=== PATIENT | female | born 1990 | race Caucasian/White ===

== ENCOUNTER 2016-10-21 18:01 | Emergency (ER) | payer MEDICAID ==
[~2016-10-21] VITALS: Ht 172.7 cm; Wt 121.9 kg
[~2016-10-21 18:01] MED LIST: CALC200T3 PO; OXYC-302 PO; PREN1TAB52 PO
[2016-10-21 18:14] VITALS: BP 135/83
[2016-10-21 19:15] LABS: HEMOGLOBIN 13.5 g/dL (11.7-16.4)
[2016-10-21 19:24] LABS: BLOOD UREA NITROGEN 13 mg/dL (7-18)
[2016-10-21] MEDS ORDERED: AZITHROMYCIN 500 MG TABLET PO ONE (20:00)
[2016-10-21] MEDS ORDERED: CEFTRIAXONE 250 MG IM ONE (20:00)
[2016-10-21] MEDS ORDERED: CEFTRIAXONE 250 MG ONE (20:12)
[2016-10-21] MEDS ORDERED: LIDOCAINE 1%, 20ML ONE (20:14)
[2016-10-21] MEDS ORDERED: AZITHROMYCIN 500 MG TABLET ONE (20:14)
== END 2016-10-21 21:38 | disposition home or self-care (01) ==
LOC: ED 21:18
DX: R10.84 Generalized abdominal pain (principal); A64 Unspecified sexually transmitted disease; N76.0 Acute vaginitis; E66.9 Obesity, unspecified
CPT/HCPCS: 36415; 80048; 81001; 82040; 85025; 87086; 87210; 87491; 87591; 87808; 96372; 99284; J0696

== ENCOUNTER 2020-11-16 13:11 | Emergency (ER) | payer MEDICAID, OTHER ==
[~2020-11-16] VITALS: Ht 172.7 cm; Wt 144.0 kg
[~2020-11-16 13:11] MED LIST changes: -OXYC-302 PO; +OXYC1TAB14 PO
[2020-11-16 13:48] VITALS: BP 133/80
== END 2020-11-16 15:04 | disposition home or self-care (01) ==
LOC: ED 14:58
DX: S83.91XA Sprain of unspecified site of right knee, initial encounter (principal); Z90.49 Acquired absence of other specified parts of digestive tract; Z87.891 Personal history of nicotine dependence; X58.XXXA Exposure to other specified factors, initial encounter; Y93.9 Activity, unspecified; Y92.89 Other specified places as the place of occurrence of the external cause; Y99.8 Other external cause status
CPT/HCPCS: 99283

== ENCOUNTER 2020-11-19 15:53 | Emergency (ER) | payer OTHER ==
[~2020-11-19] VITALS: Ht 170.2 cm; Wt 143.6 kg
[2020-11-19 16:06] VITALS: BP 148/88
--- NOTE | 2020-11-19 16:52 | NUR ---
left without being seen
== END 2020-11-19 16:54 | disposition left against medical advice (07) ==
LOC: ED 16:40
DX: Z53.21 Procedure and treatment not carried out due to patient leaving prior to being seen by health care provider (principal)